=== PATIENT | male | born 1975 | race Caucasian/White ===

== ENCOUNTER 2016-11-17 22:13 | Inpatient (IN) | payer OTHER ==
[~2016-11-17] VITALS: Ht 167.6 cm; Wt 90.5 kg
[~2016-11-17 22:13] MED LIST: GLYB5TAB8 PO; METF500T PO; MORP80CA PO; NOR10T PO; PREG75CA PO
[2016-11-17] MEDS ORDERED: SODIUM BICARBONATE 8.4 % INJ 50ML VIAL IV ONE ×2 (22:30→22:45)
[2016-11-17] MEDS ORDERED: InsuLIN REG 1unit/0.01ml Soln (100units/ml) IV ONE (22:30)
[2016-11-17] MEDS ORDERED: SODIUM BICARBONATE 50ML VIAL 50 ML in SOD CHL 0.45% 1,000 ML IV ONE (22:30)
[2016-11-17] MEDS ORDERED: SODIUM CHLORIDE 0.9% 2,000 ML IV ONE (22:30)
[2016-11-17] MEDS ORDERED: SODIUM CHLORIDE 0.9% 1,000 ML IVB ONE (22:32)
[2016-11-17] MEDS ORDERED: FAMOTIDINE (10MG/ML) 2ML VL IV ONE (22:45)
[2016-11-17] MEDS ORDERED: HYDROmorphone HCL 2 MG/ML VL IV ONE (22:45)
[2016-11-17] MEDS ORDERED: ONDANSETRON HCL 4 MG/2 ML VIAL IV ONE ×2 (22:45)
[2016-11-17 23:08] LABS: Basophils # (auto) 0 uL; Basophils % (auto) 0.2 % (0.0-2.0); Eosinophils # (auto) 0 uL; Eosinophils % (auto) 0.1 % (0.0-7.0); Hemoglobin 15.7 g/dL (13.5-17.5); Lymphocytes # (auto) 1.1 uL; Lymphocytes % (auto) 7.7 % (10.0-50.0); Mean Corpuscular Hgb Conc. 33.4 g/dL (32.0-36.0); Mean Corpuscular Volume 86.8 fL (80.0-100.0); Monocytes # (auto) 0.6 uL; Monocytes % (auto) 4.3 % (0.0-12.0); Neutrophils # (auto) 12.1 uL; Neutrophils % (auto) 87.7 % (37.0-80.0); Platelet Count (auto) 278 10^3/uL (140-450); Red Cell Distribution Width 14.3 % (11.6-16.0); White Blood Cell 13.8 10^3/uL (4.4-10.8)
[2016-11-17 23:30] LABS: INR 1.01 (0.9-1.15); Partial Thromboplastin Time 28.2 sec (22.64-33.71); Prothrombin Time 10.4 sec (9.37-12.3)
[2016-11-17 23:34] LABS: Lactic Acid 2.9 mmol/L (0.4-2.0)
[2016-11-17 23:36] LABS: REFLEX LACTIC ACID YES OR NO YES
[2016-11-17 23:41] LABS: BUN/Creatinine Ratio 22.1
[2016-11-17 23:42] LABS: Albumin 3.6 g/dL (3.4-5.0); Bilirubin, Total 0.9 mg/dL (0.2-1.0); Calcium 8.9 mg/dL (8.5-10.1); Magnesium 2.3 mg/dL (1.6-2.6); Total Protein 8.5 g/dL (6.4-8.2)
[2016-11-17 23:44] LABS: B-Type Natriuretic Peptide 16.8 pg/mL (0-100)
[2016-11-18] LABS: Temperature: 20.9 C (20.0-25.0)
[2016-11-18] MEDS ORDERED: DEXTROSE (50%) 50ML SYRG IV PRN ×3 (00:15→17:30)
[2016-11-18] MEDS: InsuLIN R (HUMAN) 100 UNITS in SODIUM CHL 0.9% 99 ML IV SCH ×3 (01:19→17:41)
[2016-11-18] MEDS ORDERED: IOHEXOL 350 MG/ML 100ML IJ ONE (01:28)
[2016-11-18] MEDS: SODIUM CHLORIDE 0.9% 1,000 ML IV SCH ×6 (01:28→21:46)
[2016-11-18] MEDS: ACCU-CHEK COMFORT CURVE STRIP VI SCH ×15 (01:29→23:06)
[2016-11-18] MEDS ORDERED: NITROGLYCERIN 0.4 MG SL TAB SL PRN (01:30)
[2016-11-18] MEDS ORDERED: MORPHINE SULF INJ 2 MG/ML SYRINGE 1ML IV PRN ×2 (01:30)
[2016-11-18] MEDS ORDERED: ENOXAPARIN SOD 100 MG/1 ML SYRINGE SC ONE (01:30)
[2016-11-18] MEDS ORDERED: PANTOPRAZOLE SODIUM 40 MG/10 ML VIAL IV ONE ×2 (01:45→13:06)
[2016-11-18 02:34] LABS: BUN/Creatinine Ratio 24.5; Calcium 7.7 mg/dL (8.5-10.1); Potassium 4.3 mmol/L (3.5-5.1)
[2016-11-18] MEDS ORDERED: SOD CHL 0.9%/ KCL 20MEQ 1,000 ML IV ONE (03:09)
[2016-11-18] MEDS: PANTOPRAZOLE SODIUM 80 MG in SODIUM CHL 0.9% 60 ML IV SCH ×3 (03:14→21:45)
[2016-11-18] MEDS ORDERED: HYDROmorphone HCL 2 MG/ML VL IV ONE (03:30)
[2016-11-18] MEDS ORDERED: SODIUM CHLORIDE 0.9% 1,000 ML IV SCH (04:04)
[2016-11-18 04:34] LABS: Urine Bilirubin Negative (Negative); Urine Blood TRACE /uL (Negative); Urine Color Colorless (Yellow); Urine Mucus FEW (None Seen); Urine Nitrite Negative (Negative); Urine RBC 1 /hpf (0 - 3); Urine Urobilinogen Normal (Negative); Urine pH 5.5 (5.0-8.0)
[2016-11-18 04:37] LABS: Urine Glucose 4+ mg/dL (Normal); Urine Ketone 4+ (Negative)
[2016-11-18] MEDS: ONDANSETRON HCL 4 MG/2 ML VIAL IV PRN ×4 (05:52→22:30)
[2016-11-18] MEDS ORDERED: POTASSIUM CHLORIDE 20 MEQ in D5W 5% 1,000 ML IV SCH (07:00)
[2016-11-18 07:16] LABS: Basophils # (auto) 0 uL; Basophils % (auto) 0.4 % (0.0-2.0); Eosinophils # (auto) 0 uL; Hemoglobin 14.6 g/dL (13.5-17.5); Lymphocytes # (auto) 1.8 uL; Lymphocytes % (auto) 17.6 % (10.0-50.0); Mean Corpuscular Volume 85.4 fL (80.0-100.0); Mean Platelet Volume 8.3 fL (7.4-10.4); Monocytes # (auto) 0.8 uL; Monocytes % (auto) 7.5 % (0.0-12.0); Neutrophils # (auto) 7.5 uL; Neutrophils % (auto) 74.5 % (37.0-80.0); Platelet Count (auto) 284 10^3/uL (140-450); Red Cell Distribution Width 15.1 % (11.6-16.0); White Blood Cell 10.1 10^3/uL (4.4-10.8)
[2016-11-18 07:34] LABS: BUN/Creatinine Ratio 20.5; Calcium 8.5 mg/dL (8.5-10.1); Potassium 4.1 mmol/L (3.5-5.1)
[2016-11-18] MEDS: HYDROmorphone HCL 2 MG/ML VL IV PRN ×4 (10:45→23:14)
[2016-11-18 10:56] LABS: BUN/Creatinine Ratio 17.6; Calcium 8.4 mg/dL (8.5-10.1); Potassium 3.9 mmol/L (3.5-5.1)
[2016-11-18] MEDS ORDERED: INSULIN DETEMIR(LEVEMIR) 1unit/0.01ml Soln (100units/ml) SC ONE (11:00)
[2016-11-18] MEDS: InsuLIN REG 1unit/0.01ml Soln (100units/ml) SC SCH ×3 (11:12→16:24)
[2016-11-18] MEDS ORDERED: ACCU-CHEK COMFORT CURVE STRIP VI SCH (11:30)
[2016-11-18 11:55] LABS: Basophils # (auto) 0 uL; Basophils % (auto) 0.3 % (0.0-2.0); Eosinophils # (auto) 0 uL; Eosinophils % (auto) 0.1 % (0.0-7.0); Hematocrit 29.2 % (41.0-53.0); Hemoglobin 9.2 g/dL (13.5-17.5); Lymphocytes # (auto) 1.1 uL; Mean Corpuscular Hgb Conc. 31.5 g/dL (32.0-36.0); Mean Corpuscular Volume 91.9 fL (80.0-100.0); Mean Platelet Volume 8.1 fL (7.4-10.4); Monocytes # (auto) 0.9 uL; Monocytes % (auto) 10.2 % (0.0-12.0); Neutrophils # (auto) 6.4 uL; Neutrophils % (auto) 76.4 % (37.0-80.0); Platelet Count (auto) 162 10^3/uL (140-450); Red Cell Distribution Width 15.7 % (11.6-16.0); White Blood Cell 8.3 10^3/uL (4.4-10.8)
[2016-11-18] MEDS ORDERED: IODIXANOL 320MG/ML 100ML BTL IV ONE (12:00)
[2016-11-18 14:31] LABS: BUN/Creatinine Ratio 14.2; Calcium 7.9 mg/dL (8.5-10.1)
[2016-11-18 20:10] LABS: Basophils # (auto) 0 uL; Basophils % (auto) 0.3 % (0.0-2.0); Eosinophils # (auto) 0 uL; Eosinophils % (auto) 0.3 % (0.0-7.0); Hematocrit 38.4 % (41.0-53.0); Hemoglobin 12.9 g/dL (13.5-17.5); Lymphocytes # (auto) 1.2 uL; Mean Corpuscular Hemoglobin 28.6 pg (28.0-32.0); Mean Corpuscular Hgb Conc. 33.6 g/dL (32.0-36.0); Mean Corpuscular Volume 85.2 fL (80.0-100.0); Mean Platelet Volume 7.8 fL (7.4-10.4); Monocytes # (auto) 0.8 uL; Monocytes % (auto) 8.2 % (0.0-12.0); Neutrophils # (auto) 7.2 uL; Neutrophils % (auto) 78.2 % (37.0-80.0); Platelet Count (auto) 213 10^3/uL (140-450); Red Cell Distribution Width 14.5 % (11.6-16.0); White Blood Cell 9.2 10^3/uL (4.4-10.8)
[2016-11-18 20:23] LABS: Calcium 8.2 mg/dL (8.5-10.1); Potassium 3.7 mmol/L (3.5-5.1)
[2016-11-18] MEDS ORDERED: LORazepam 2MG/ML-1ML VIAL IV PRN (20:45)
[2016-11-18] MEDS ORDERED: InsuLIN REG 1unit/0.01ml Soln (100units/ml) SC SCH (22:00)
[2016-11-18] MEDS ORDERED: PHENYLEPHRINE INJ 20 MG in SODIUM CHL 0.9% 250 ML IV SCH (22:34)
[2016-11-19] VITALS (14 sets, daily range): BP systolic 116–159; BP diastolic 77–101
[2016-11-19] MEDS: ACCU-CHEK COMFORT CURVE STRIP VI SCH ×21 (00:01→23:00)
[2016-11-19 00:57] LABS: Basophils # (auto) 0.1 uL; Basophils % (auto) 0.8 % (0.0-2.0); Eosinophils # (auto) 0.1 uL; Eosinophils % (auto) 0.7 % (0.0-7.0); Hematocrit 40.8 % (41.0-53.0); Hemoglobin 13.6 g/dL (13.5-17.5); Lymphocytes # (auto) 1.5 uL; Mean Corpuscular Hemoglobin 28.9 pg (28.0-32.0); Mean Corpuscular Hgb Conc. 33.3 g/dL (32.0-36.0); Mean Corpuscular Volume 86.8 fL (80.0-100.0); Mean Platelet Volume 7.9 fL (7.4-10.4); Monocytes # (auto) 0.6 uL; Monocytes % (auto) 6.4 % (0.0-12.0); Neutrophils # (auto) 6.8 uL; Neutrophils % (auto) 75.1 % (37.0-80.0); Platelet Count (auto) 218 10^3/uL (140-450); Red Cell Distribution Width 13.9 % (11.6-16.0); White Blood Cell 9.1 10^3/uL (4.4-10.8)
[2016-11-19] MEDS: ONDANSETRON HCL 4 MG/2 ML VIAL IV PRN (04:39)
[2016-11-19] MEDS: HYDROmorphone HCL 2 MG/ML VL IV PRN ×3 (05:29→19:45)
[2016-11-19] MEDS ORDERED: PROMETHAZINE HCL 25 MG/ML 1ML ONE (06:00)
[2016-11-19 06:25] LABS: Basophils # (auto) 0 uL; Basophils % (auto) 0.4 % (0.0-2.0); Eosinophils # (auto) 0.1 uL; Eosinophils % (auto) 0.8 % (0.0-7.0); Hemoglobin 14.1 g/dL (13.5-17.5); Lymphocytes # (auto) 2.3 uL; Lymphocytes % (auto) 19.6 % (10.0-50.0); Mean Corpuscular Hemoglobin 28.8 pg (28.0-32.0); Mean Corpuscular Hgb Conc. 33.7 g/dL (32.0-36.0); Mean Corpuscular Volume 85.6 fL (80.0-100.0); Mean Platelet Volume 8.1 fL (7.4-10.4); Monocytes # (auto) 0.8 uL; Monocytes % (auto) 6.8 % (0.0-12.0); Neutrophils # (auto) 8.6 uL; Neutrophils % (auto) 72.4 % (37.0-80.0); Platelet Count (auto) 251 10^3/uL (140-450); Red Cell Distribution Width 14.6 % (11.6-16.0); White Blood Cell 11.9 10^3/uL (4.4-10.8)
[2016-11-19 06:36] LABS: Albumin 3.1 g/dL (3.4-5.0); Calcium 8.3 mg/dL (8.5-10.1); Potassium 3.4 mmol/L (3.5-5.1)
[2016-11-19 06:38] LABS: BUN/Creatinine Ratio 8.7
[2016-11-19 06:41] LABS: Bilirubin, Total 0.8 mg/dL (0.2-1.0); Total Protein 7.8 g/dL (6.4-8.2)
[2016-11-19] MEDS: PROMETHAZINE HCL 25 MG/ML 1ML IV PRN ×3 (06:55→19:45)
[2016-11-19] MEDS: PANTOPRAZOLE SODIUM 80 MG in SODIUM CHL 0.9% 60 ML IV SCH ×2 (07:45→17:45)
[2016-11-19] MEDS: SODIUM CHLORIDE 0.9% 1,000 ML IV SCH (09:00)
[2016-11-19 12:12] LABS: BUN/Creatinine Ratio 10.7; Calcium 8.2 mg/dL (8.5-10.1); Potassium 3.4 mmol/L (3.5-5.1)
[2016-11-19] MEDS: D5W/SOD CHLO 0.9% 1,000 ML IV SCH ×2 (12:30→18:51)
[2016-11-19] MEDS: InsuLIN R (HUMAN) 100 UNITS in SODIUM CHL 0.9% 99 ML IV SCH (17:18)
[2016-11-19 17:30] LABS: BUN/Creatinine Ratio 8.2; Calcium 8.1 mg/dL (8.5-10.1); Potassium 3.2 mmol/L (3.5-5.1)
[2016-11-19] MEDS ORDERED: ONDANSETRON HCL 4 MG/2 ML VIAL IV ONE (19:30)
[2016-11-19 23:23] LABS: BUN/Creatinine Ratio 7.4; Potassium 3.3 mmol/L (3.5-5.1)
[2016-11-20] VITALS (21 sets, daily range): BP systolic 116–172; BP diastolic 61–96
[2016-11-20] MEDS ORDERED: SOD CHL 0.9%/ KCL 20MEQ 1,000 ML IV ONE (00:24)
[2016-11-20] MEDS: PROMETHAZINE HCL 25 MG/ML 1ML IV PRN ×4 (00:25→21:07)
[2016-11-20] MEDS: SOD CHL 0.9%/ KCL 20MEQ 1,000 ML IV SCH ×3 (00:45→14:05)
[2016-11-20] MEDS: ACCU-CHEK COMFORT CURVE STRIP VI SCH ×16 (00:50→23:53)
[2016-11-20] MEDS: HYDROmorphone HCL 2 MG/ML VL IV PRN ×4 (01:36→21:07)
[2016-11-20] MEDS: D5W/SOD CHLO 0.9% 1,000 ML IV SCH ×2 (01:50→08:30)
[2016-11-20] MEDS: PANTOPRAZOLE SODIUM 80 MG in SODIUM CHL 0.9% 60 ML IV SCH ×3 (03:45→18:12)
[2016-11-20 03:46] LABS: Basophils # (auto) 0 uL; Basophils % (auto) 0.4 % (0.0-2.0); Eosinophils # (auto) 0 uL; Eosinophils % (auto) 0.5 % (0.0-7.0); Hematocrit 35.4 % (41.0-53.0); Hemoglobin 11.8 g/dL (13.5-17.5); Lymphocytes # (auto) 1.8 uL; Lymphocytes % (auto) 28.5 % (10.0-50.0); Mean Corpuscular Hemoglobin 28.5 pg (28.0-32.0); Mean Corpuscular Hgb Conc. 33.5 g/dL (32.0-36.0); Mean Corpuscular Volume 85.2 fL (80.0-100.0); Mean Platelet Volume 7.9 fL (7.4-10.4); Monocytes # (auto) 0.5 uL; Monocytes % (auto) 7.8 % (0.0-12.0); Neutrophils # (auto) 3.9 uL; Neutrophils % (auto) 62.8 % (37.0-80.0); Platelet Count (auto) 181 10^3/uL (140-450); Red Cell Distribution Width 14.8 % (11.6-16.0); White Blood Cell 6.2 10^3/uL (4.4-10.8)
[2016-11-20 04:05] LABS: Calcium 7.7 mg/dL (8.5-10.1)
[2016-11-20 04:07] LABS: BUN/Creatinine Ratio 6.9
[2016-11-20] MEDS: D5W 5% 1,000 ML IV SCH ×2 (04:30→11:10)
[2016-11-20] MEDS ORDERED: INSULIN DETEMIR(LEVEMIR) 1unit/0.01ml Soln (100units/ml) SC ONE (09:45)
[2016-11-20] MEDS ORDERED: DEXTROSE (50%) 50ML SYRG IV PRN (09:45)
[2016-11-20 10:59] LABS: BUN/Creatinine Ratio 7.7; Calcium 8.1 mg/dL (8.5-10.1)
[2016-11-20 11:07] LABS: Potassium 2.7 mmol/L (3.5-5.1)
[2016-11-20] MEDS: POTASSIUM CHL 20MEQ/100ML 100 ML IV SCH ×2 (11:22→13:26)
[2016-11-20] MEDS: InsuLIN REG 1unit/0.01ml Soln (100units/ml) SC SCH ×4 (12:00→23:52)
[2016-11-20 15:34] LABS: BUN/Creatinine Ratio 7.9; Calcium 7.8 mg/dL (8.5-10.1); Potassium 3.5 mmol/L (3.5-5.1)
[2016-11-20] MEDS ORDERED: ACCU-CHEK COMFORT CURVE STRIP VI SCH (16:00)
[2016-11-20] MEDS: SODIUM CHLORIDE 0.9% 1,000 ML IV SCH ×2 (16:09→23:52)
[2016-11-20] MEDS ORDERED: INSULIN DETEMIR(LEVEMIR) 1unit/0.01ml Soln (100units/ml) SC SCH (22:00)
[2016-11-20 22:39] LABS: BUN/Creatinine Ratio 9.8; Calcium 8.3 mg/dL (8.5-10.1); Potassium 3.2 mmol/L (3.5-5.1)
[2016-11-21] MEDS: HYDROmorphone HCL 2 MG/ML VL IV PRN ×2 (03:05→09:44)
[2016-11-21] MEDS: PROMETHAZINE HCL 25 MG/ML 1ML IV PRN ×2 (03:06→10:05)
[2016-11-21] MEDS: InsuLIN REG 1unit/0.01ml Soln (100units/ml) SC SCH ×2 (04:07→08:13)
[2016-11-21] MEDS: ACCU-CHEK COMFORT CURVE STRIP VI SCH ×2 (04:08→08:18)
[2016-11-21 05:14] VITALS: BP 135/68
[2016-11-21 05:58] LABS: Basophils # (auto) 0 uL; Basophils % (auto) 0.5 % (0.0-2.0); Eosinophils # (auto) 0.2 uL; Eosinophils % (auto) 2.3 % (0.0-7.0); Hematocrit 43.2 % (41.0-53.0); Hemoglobin 14.6 g/dL (13.5-17.5); Lymphocytes # (auto) 2.7 uL; Lymphocytes % (auto) 36.5 % (10.0-50.0); Mean Corpuscular Hemoglobin 28.7 pg (28.0-32.0); Mean Corpuscular Hgb Conc. 33.8 g/dL (32.0-36.0); Mean Corpuscular Volume 84.7 fL (80.0-100.0); Mean Platelet Volume 7.9 fL (7.4-10.4); Monocytes # (auto) 0.5 uL; Monocytes % (auto) 7.5 % (0.0-12.0); Neutrophils # (auto) 3.9 uL; Neutrophils % (auto) 53.2 % (37.0-80.0); Platelet Count (auto) 227 10^3/uL (140-450); Red Cell Distribution Width 14.4 % (11.6-16.0); White Blood Cell 7.3 10^3/uL (4.4-10.8)
[2016-11-21 06:30] VITALS: BP 135/68
[2016-11-21 06:53] LABS: BUN/Creatinine Ratio 6.8; Calcium 8.4 mg/dL (8.5-10.1)
[2016-11-21] MEDS: SODIUM CHLORIDE 0.9% 1,000 ML IV SCH (06:53)
[2016-11-21] MEDS ORDERED: PNEUMOCOCCAL VACC POLYS 25 MCG/0.5 ML VIAL IM ONE (08:00)
[2016-11-21 08:42] VITALS: BP 140/83
[2016-11-21] MEDS ORDERED: INFLUENZA QUAD 2016-2017 0.5 ML SYRG IM ONE (10:00)
== END 2016-11-21 11:26 | disposition home or self-care (01) | DRG 368 ==
LOC: EDBD 22:13 → ER 22:15 → TELE 22:16 → ICU WEST 11-19 20:23 → TELE-EAST 11-20 21:33 → EAST 11-21 01:34
PROVIDERS: ADMIT Hospitalist; ATTEND Hospitalist
DX: K22.6 Gastro-esophageal laceration-hemorrhage syndrome (principal); E13.10 Other specified diabetes mellitus with ketoacidosis without coma; N17.0 Acute kidney failure with tubular necrosis; K92.0 Hematemesis; E86.0 Dehydration; G89.29 Other chronic pain; I10 Essential (primary) hypertension; F32.9 Major depressive disorder, single episode, unspecified; F41.9 Anxiety disorder, unspecified; E78.5 Hyperlipidemia, unspecified; M54.5 Low back pain; M47.896 Other spondylosis, lumbar region; Z88.0 Allergy status to penicillin; Z88.8 Allergy status to other drugs, medicaments and biological substances; Z88.5 Allergy status to narcotic agent; Z79.4 Long term (current) use of insulin; Z91.14 Patient's other noncompliance with medication regimen; Z98.890 Other specified postprocedural states; Z23 Encounter for immunization; E11.43 Type 2 diabetes mellitus with diabetic autonomic (poly)neuropathy; K31.84 Gastroparesis
CPT/HCPCS: 36415; 36600; 71010; 71275; 74176; 80048; 80053; 81001; 82010; 82805; 82962; 83036; 83605; 83690; 83735; 83880; 83930; 84100; 84443; 84484; 85025; 85049; 85379; 85610; 85730; 87040; 87081; 93005; 94761; 96361; 96374; 96375; C9113; J1815; J2405; J3480; J3490; J7042; Q9967

== ENCOUNTER 2016-12-26 12:01 | Inpatient (IN) | payer SELFPAY ==
[~2016-12-26] VITALS: Ht 160 cm; Wt 96.1 kg
[~2016-12-26 12:01] MED LIST changes: -GLYB5TAB8 PO; -METF500T PO
[2016-12-26] MEDS ORDERED: SODIUM CHLORIDE 0.9% 1,000 ML IV ONE (12:32)
[2016-12-26] MEDS ORDERED: MEPERIDINE HCL (25 MG/ML) 1ML VIAL IV ONE (12:45)
[2016-12-26] MEDS ORDERED: PROMETHAZINE HCL 25 MG/ML 1ML IV ONE (12:45)
[2016-12-26 13:17] LABS: Basophils # (auto) 0.1 uL; Basophils % (auto) 0.8 % (0.0-2.0); Eosinophils # (auto) 0.4 uL; Eosinophils % (auto) 4.8 % (0.0-7.0); Hematocrit 45.2 % (41.0-53.0); Hemoglobin 15.7 g/dL (13.5-17.5); Lymphocytes % (auto) 13.4 % (10.0-50.0); Mean Corpuscular Hemoglobin 29.8 pg (28.0-32.0); Mean Corpuscular Hgb Conc. 34.7 g/dL (32.0-36.0); Mean Corpuscular Volume 85.7 fL (80.0-100.0); Mean Platelet Volume 8.6 fL (7.4-10.4); Monocytes # (auto) 0.3 uL; Monocytes % (auto) 3.7 % (0.0-12.0); Neutrophils # (auto) 5.8 uL; Neutrophils % (auto) 77.3 % (37.0-80.0); Platelet Count (auto) 279 10^3/uL (140-450); Red Cell Distribution Width 15.7 % (11.6-16.0); White Blood Cell 7.5 10^3/uL (4.4-10.8)
[2016-12-26 13:37] LABS: Albumin 3.8 g/dL (3.4-5.0); Alkaline Phosphatase 79 U/L (45-117); Anion Gap 19 (5-15); Aspartate Aminotransferase 18 U/L (15-37); BUN/Creatinine Ratio 17.4; Bilirubin, Total 1.4 mg/dL (0.2-1.0); Blood Urea Nitrogen 16 mg/dL (7-18); Calcium 9.4 mg/dL (8.5-10.1); Carbon Dioxide 19 mmol/L (21-32); Chloride 99 mmol/L (98-107); GFR African American 117 mL/min; GFR Non-African American 96 mL/min; Potassium 3.6 mmol/L (3.5-5.1); Sodium 137 mmol/L (136-145); Total Protein 9.1 g/dL (6.4-8.2)
[2016-12-26 13:44] LABS: Glucose 524 mg/dL (74-106)
[2016-12-26] MEDS ORDERED: PANTOPRAZOLE SODIUM 40 MG/10 ML VIAL IV ONE (14:00)
[2016-12-26] MEDS ORDERED: DEXTROSE (50%) 50ML SYRG IV PRN ×2 (14:00→15:30)
[2016-12-26] MEDS ORDERED: InsuLIN R (HUMAN) 100 UNITS in SODIUM CHL 0.9% 99 ML IV SCH ×2 (14:00→15:17)
[2016-12-26] MEDS ORDERED: LORazepam 2MG/ML-1ML VIAL IV ONE (14:45)
[2016-12-26] MEDS: SODIUM CHLORIDE 0.9% 1,000 ML IV SCH ×5 (15:00→19:46)
[2016-12-26] MEDS: ACCU-CHEK COMFORT CURVE STRIP VI SCH ×18 (15:28→23:00)
[2016-12-26] MEDS ORDERED: LACTULOSE 20Gm/30ML SOLN PO PRN (15:30)
[2016-12-26] MEDS ORDERED: NITROGLYCERIN 0.4 MG SL TAB SL PRN (15:30)
[2016-12-26] MEDS ORDERED: LORazepam 0.5 MG TAB PO PRN (15:30)
[2016-12-26] MEDS ORDERED: HYDROcodone-ACET 5/325MG TAB PO PRN ×2 (15:30→17:54)
[2016-12-26] MEDS ORDERED: ACETAMINOPHEN 500 MG TAB PO PRN (15:30)
[2016-12-26 16:06] LABS: BUN/Creatinine Ratio 19.8; Calcium 8.4 mg/dL (8.5-10.1); Potassium 3.7 mmol/L (3.5-5.1)
[2016-12-26 16:32] LABS: INR 1.01 (0.9-1.15); Partial Thromboplastin Time 25.5 sec (22.64-33.71); Prothrombin Time 10.4 sec (9.37-12.3)
[2016-12-26] MEDS ORDERED: HYDROmorphone HCL 2 MG/ML VL IV PRN (17:45)
[2016-12-26] MEDS ORDERED: LORazepam 2MG/ML-1ML VIAL IV PRN (17:45)
[2016-12-26] MEDS ORDERED: SODIUM CHLORIDE 0.9% 1,000 ML IV SCH ×2 (17:46→19:17)
[2016-12-26] MEDS: PROMETHAZINE HCL 25 MG/ML 1ML IV PRN ×2 (18:09→22:12)
[2016-12-26 18:23] LABS: Hematocrit 42.7 % (41.0-53.0)
[2016-12-26 18:30] VITALS: BP 155/92
[2016-12-26 19:00] VITALS: BP 107/44
[2016-12-26 20:00] VITALS: BP 126/70
[2016-12-26 20:31] LABS: Calcium 8.4 mg/dL (8.5-10.1); Potassium 4.1 mmol/L (3.5-5.1)
[2016-12-26 21:00] VITALS: BP 105/50
[2016-12-26 21:37] LABS: BUN/Creatinine Ratio 18.5; Calcium 8.2 mg/dL (8.5-10.1); Potassium 4.1 mmol/L (3.5-5.1)
[2016-12-26 22:00] VITALS: BP 164/89
[2016-12-26] MEDS: TEMAZEPAM 15 MG CAP PO PRN (22:11)
[2016-12-26] MEDS: PANTOPRAZOLE SODIUM 40 MG/10 ML VIAL IV SCH (22:12)
[2016-12-26] MEDS: HYDROmorphone HCL 2 MG/ML VL IV PRN (22:14)
[2016-12-26 23:00] VITALS: BP 109/67
[2016-12-27] VITALS (30 sets, daily range): BP systolic 106–178; BP diastolic 64–120
[2016-12-27] MEDS: ACCU-CHEK COMFORT CURVE STRIP VI SCH ×24 (01:00→22:22)
[2016-12-27] MEDS: SODIUM CHLORIDE 0.9% 1,000 ML IV SCH ×4 (02:26→09:52)
[2016-12-27 03:57] LABS: Basophils # (auto) 0 uL; Basophils % (auto) 0.4 % (0.0-2.0); Eosinophils # (auto) 0 uL; Eosinophils % (auto) 0.3 % (0.0-7.0); Hemoglobin 12.1 g/dL (13.5-17.5); Lymphocytes # (auto) 1.4 uL; Lymphocytes % (auto) 16.9 % (10.0-50.0); Mean Corpuscular Hemoglobin 29.7 pg (28.0-32.0); Mean Corpuscular Hgb Conc. 34.5 g/dL (32.0-36.0); Mean Platelet Volume 8.1 fL (7.4-10.4); Monocytes # (auto) 0.6 uL; Monocytes % (auto) 6.9 % (0.0-12.0); Neutrophils # (auto) 6.1 uL; Neutrophils % (auto) 75.5 % (37.0-80.0); Platelet Count (auto) 234 10^3/uL (140-450); Red Cell Distribution Width 16.1 % (11.6-16.0); White Blood Cell 8.1 10^3/uL (4.4-10.8)
[2016-12-27] MEDS: HYDROmorphone HCL 2 MG/ML VL IV PRN ×4 (04:06→23:06)
[2016-12-27 04:16] LABS: Albumin 2.8 g/dL (3.4-5.0); Bilirubin, Total 0.6 mg/dL (0.2-1.0); Calcium 7.8 mg/dL (8.5-10.1); Potassium 3.7 mmol/L (3.5-5.1); Total Protein 6.9 g/dL (6.4-8.2)
[2016-12-27] MEDS: PROMETHAZINE HCL 25 MG/ML 1ML IV PRN ×4 (07:30→23:07)
[2016-12-27 07:34] LABS: Urine Bilirubin Negative (Negative); Urine Blood TRACE /uL (Negative); Urine Color Yellow (Yellow); Urine Mucus FEW (None Seen); Urine Nitrite Negative (Negative); Urine RBC 5 /hpf (0 - 3); Urine Urobilinogen Normal (Negative)
[2016-12-27 07:35] LABS: Urine Glucose 4+ mg/dL (Normal); Urine Ketone 2+ (Negative)
[2016-12-27] MEDS ORDERED: SODIUM CHLORIDE LOCK 10 ML ONE (08:12)
[2016-12-27] MEDS ORDERED: MIDAZOLAM HCL 5 MG/ML-1ML VIAL ONE (08:13)
[2016-12-27] MEDS ORDERED: diphenhdrAMINE HCL 50 MG/1 ML VL ONE (08:13)
[2016-12-27] MEDS ORDERED: fentaNYL CITRATE 100 MCG/2 ML VL ONE (08:13)
[2016-12-27] MEDS ORDERED: LIDOCAINE VISCOUS 2% 15ML UD ONE (08:13)
[2016-12-27] MEDS ORDERED: InsuLIN R (HUMAN) 100 UNITS in SODIUM CHL 0.9% 99 ML IV SCH (09:02)
[2016-12-27] MEDS: PANTOPRAZOLE SODIUM 40 MG/10 ML VIAL IV SCH ×2 (09:13→22:05)
[2016-12-27 09:54] LABS: Calcium 8.4 mg/dL (8.5-10.1); Potassium 4.1 mmol/L (3.5-5.1)
[2016-12-27] MEDS ORDERED: PANTOPRAZOLE SODIUM 40 MG/10 ML VIAL IV SCH (10:00)
[2016-12-27 10:18] LABS: Hematocrit 41.7 % (41.0-53.0); Hemoglobin 14.4 g/dL (13.5-17.5)
[2016-12-27] MEDS ORDERED: INSULIN DETEMIR(LEVEMIR) 1unit/0.01ml Soln (100units/ml) SC ONE (11:15)
[2016-12-27] MEDS: SOD CHL 0.45% WITH 20MEQ KCL 1,000 ML IV SCH (11:27)
[2016-12-27] MEDS ORDERED: SODIUM PHOSPHATES IV ONE (12:15)
[2016-12-27] MEDS ORDERED: SODIUM CHL 0.9% IV ONE (12:15)
[2016-12-27] MEDS ORDERED: DEXTROSE (50%) 50ML SYRG IV PRN (13:15)
[2016-12-27] MEDS: InsuLIN REG 1unit/0.01ml Soln (100units/ml) SC SCH ×2 (17:00→22:24)
[2016-12-27] MEDS: INSULIN DETEMIR(LEVEMIR) 1unit/0.01ml Soln (100units/ml) SC SCH (22:23)
[2016-12-28] MEDS: TEMAZEPAM 15 MG CAP PO PRN ×2 (00:02→23:49)
[2016-12-28] MEDS: SOD CHL 0.45% WITH 20MEQ KCL 1,000 ML IV SCH ×2 (01:20→13:55)
[2016-12-28 05:03] VITALS: BP 125/75
[2016-12-28] MEDS: HYDROmorphone HCL 2 MG/ML VL IV PRN ×3 (05:57→20:21)
[2016-12-28] MEDS: PROMETHAZINE HCL 25 MG/ML 1ML IV PRN ×4 (05:57→22:54)
[2016-12-28 06:10] LABS: Basophils # (auto) 0.1 uL; Eosinophils # (auto) 0.3 uL; Eosinophils % (auto) 4.7 % (0.0-7.0); Hematocrit 35.2 % (41.0-53.0); Hemoglobin 12.1 g/dL (13.5-17.5); Lymphocytes # (auto) 1.9 uL; Lymphocytes % (auto) 32.5 % (10.0-50.0); Mean Corpuscular Hemoglobin 29.5 pg (28.0-32.0); Mean Corpuscular Hgb Conc. 34.3 g/dL (32.0-36.0); Monocytes # (auto) 0.4 uL; Monocytes % (auto) 7.2 % (0.0-12.0); Neutrophils # (auto) 3.3 uL; Neutrophils % (auto) 54.6 % (37.0-80.0); Platelet Count (auto) 196 10^3/uL (140-450); Red Cell Distribution Width 15.5 % (11.6-16.0)
[2016-12-28] MEDS: InsuLIN REG 1unit/0.01ml Soln (100units/ml) SC SCH ×4 (06:24→22:52)
[2016-12-28] MEDS: ACCU-CHEK COMFORT CURVE STRIP VI SCH ×4 (06:24→22:53)
[2016-12-28 06:29] LABS: BUN/Creatinine Ratio 10.9; Calcium 8.6 mg/dL (8.5-10.1); Phosphorus 1.9 mg/dL (2.5-4.90); Potassium 3.1 mmol/L (3.5-5.1)
[2016-12-28] MEDS ORDERED: POTASSIUM PHOSPHATE 44 MEQ in SODIUM CHL 0.9% 250 ML IV ONE (07:45)
[2016-12-28] MEDS ORDERED: cloNIDine HCL 0.1 MG TAB PO PRN (08:30)
[2016-12-28 09:00] VITALS: BP 181/95
[2016-12-28] MEDS: KETOROLAC TROMETH 30 MG/ML 1ML VIAL IV PRN (09:30)
[2016-12-28] MEDS: PANTOPRAZOLE SODIUM 40 MG/10 ML VIAL IV SCH ×2 (09:38→22:53)
[2016-12-28] MEDS: LISINOPRIL 10 MG TAB PO SCH (09:39)
[2016-12-28 12:43] VITALS: BP 188/95
[2016-12-28] MEDS ORDERED: hydrALAZINE HCL 20 MG/ML VL IV PRN (14:00)
[2016-12-28] MEDS ORDERED: HYDROcodone-ACET 10/325MG TAB PO PRN (14:15)
[2016-12-28] MEDS: ONDANSETRON HCL 4 MG/2 ML VIAL IV PRN ×2 (15:46→20:21)
[2016-12-28 16:57] VITALS: BP 139/79
[2016-12-28 22:25] VITALS: BP 132/74
[2016-12-28] MEDS: INSULIN DETEMIR(LEVEMIR) 1unit/0.01ml Soln (100units/ml) SC SCH (22:53)
[2016-12-29] MEDS: PROMETHAZINE HCL 25 MG/ML 1ML IV PRN ×5 (01:59→23:01)
[2016-12-29] MEDS: HYDROmorphone HCL 2 MG/ML VL IV PRN ×5 (02:04→21:28)
[2016-12-29] MEDS: ONDANSETRON HCL 4 MG/2 ML VIAL IV PRN ×3 (02:06→20:12)
[2016-12-29] MEDS: SOD CHL 0.45% WITH 20MEQ KCL 1,000 ML IV SCH ×2 (03:15→16:35)
[2016-12-29 05:24] VITALS: BP 108/60
[2016-12-29 05:54] LABS: Calcium 8.5 mg/dL (8.5-10.1); Magnesium 1.6 mg/dL (1.6-2.6); Phosphorus 3.5 mg/dL (2.5-4.90); Potassium 3.4 mmol/L (3.5-5.1)
[2016-12-29] MEDS: ACCU-CHEK COMFORT CURVE STRIP VI SCH ×4 (06:50→21:17)
[2016-12-29] MEDS: InsuLIN REG 1unit/0.01ml Soln (100units/ml) SC SCH ×4 (06:56→21:39)
[2016-12-29] MEDS ORDERED: POTASSIUM CHL 20 Meq TABLET PO ONE (08:00)
[2016-12-29] MEDS ORDERED: METF-312 PO (08:47)
[2016-12-29] MEDS ORDERED: GLIP-116 PO (08:47)
[2016-12-29 09:00] VITALS: BP 125/81
[2016-12-29] MEDS: MAGNESIUM SULFATE 1GM/100ML 100 ML IV SCH ×2 (09:09→11:46)
[2016-12-29] MEDS: PANTOPRAZOLE SODIUM 40 MG/10 ML VIAL IV SCH ×2 (09:09→21:16)
[2016-12-29] MEDS: KETOROLAC TROMETH 30 MG/ML 1ML VIAL IV PRN ×3 (09:10→22:49)
[2016-12-29] MEDS: LISINOPRIL 10 MG TAB PO SCH (09:11)
[2016-12-29] MEDS ORDERED: glipiZIDE 5 MG TAB PO ONE (11:00)
[2016-12-29 12:00] VITALS: BP 117/68
[2016-12-29 13:00] VITALS: BP 109/70
[2016-12-29] MEDS ORDERED: LACTULOSE 20Gm/30ML SOLN PO PRN (14:30)
[2016-12-29] MEDS ORDERED: LACTULOSE 20Gm/30ML SOLN PO ONE (14:30)
[2016-12-29 17:00] VITALS: BP 128/80
[2016-12-29] MEDS: glipiZIDE 5 MG TAB PO SCH (18:00)
[2016-12-29] MEDS: INSULIN DETEMIR(LEVEMIR) 1unit/0.01ml Soln (100units/ml) SC SCH (21:39)
[2016-12-29 22:11] VITALS: BP 145/94
[2016-12-29] MEDS: TEMAZEPAM 15 MG CAP PO PRN (22:49)
[2016-12-30] MEDS: HYDROmorphone HCL 2 MG/ML VL IV PRN ×3 (01:32→10:06)
[2016-12-30] MEDS: SOD CHL 0.45% WITH 20MEQ KCL 1,000 ML IV SCH (01:47)
[2016-12-30 05:21] VITALS: BP 106/61
[2016-12-30] MEDS: PROMETHAZINE HCL 25 MG/ML 1ML IV PRN (05:57)
[2016-12-30] MEDS: ACCU-CHEK COMFORT CURVE STRIP VI SCH ×2 (06:06→11:30)
[2016-12-30] MEDS: InsuLIN REG 1unit/0.01ml Soln (100units/ml) SC SCH ×2 (06:55→11:30)
[2016-12-30] MEDS: glipiZIDE 5 MG TAB PO SCH (06:58)
[2016-12-30] MEDS ORDERED: PANT40TA2 PO (07:40)
[2016-12-30] MEDS ORDERED: ONDA4TAB5 PO (07:42)
[2016-12-30 09:00] VITALS: BP 92/56
[2016-12-30] MEDS ORDERED: PANTOPRAZOLE 40 MG TAB PO SCH (10:00)
[2016-12-30] MEDS: LISINOPRIL 10 MG TAB PO SCH (10:00)
[2016-12-30 13:00] VITALS: BP 110/69
== END 2016-12-30 13:52 | disposition home or self-care (01) | DRG 444 ==
LOC: ER 12:01 → EDUNIT# 12:01 → TELE 12:02 → ICU WEST 18:30 → WEST WING 12-27 16:37
PROVIDERS: ADMIT Internal Medicine; ATTEND Internal Medicine
PROC: 0DJ08ZZ Inspection of Upper Intestinal Tract, Via Natural or Artificial Opening Endoscopic (ICD-10-PCS; principal; 2016-12-27 09:45)
DX: K80.10 Calculus of gallbladder with chronic cholecystitis without obstruction (principal); E13.10 Other specified diabetes mellitus with ketoacidosis without coma; K92.0 Hematemesis; F32.9 Major depressive disorder, single episode, unspecified; F41.9 Anxiety disorder, unspecified; E78.5 Hyperlipidemia, unspecified; K20.9 Esophagitis, unspecified; K29.70 Gastritis, unspecified, without bleeding; M19.90 Unspecified osteoarthritis, unspecified site; K44.9 Diaphragmatic hernia without obstruction or gangrene; K57.30 Diverticulosis of large intestine without perforation or abscess without bleeding; G89.29 Other chronic pain; F19.90 Other psychoactive substance use, unspecified, uncomplicated; E11.42 Type 2 diabetes mellitus with diabetic polyneuropathy; Z82.49 Family history of ischemic heart disease and other diseases of the circulatory system; Z88.0 Allergy status to penicillin; Z88.5 Allergy status to narcotic agent; Z83.3 Family history of diabetes mellitus; Z80.3 Family history of malignant neoplasm of breast
CPT/HCPCS: 36415; 36600; 43235; 71010; 74176; 76705; 78226; 80048; 80053; 80061; 80320; 81001; 82010; 82150; 82270; 82805; 82962; 83036; 83690; 83735; 84100; 84443; 84484; 85014; 85018; 85025; 85045; 85610; 85652; 85730; 86850; 86900; 86901; 87081; 87086; 93005; 96361; 96365; 96375; 99291; C9113; G0434; J1815; J1885; J2250; J2405